=== PATIENT | male | born 1955 | race Hispanic/Latino ===

== ENCOUNTER 2017-09-22 12:46 | Emergency (ER) | payer OTHER ==
[~2017-09-22] VITALS: Ht 162.6 cm; Wt 66.0 kg
[2017-09-22] MEDS ORDERED: METOPROL TAR25 MG PO (12:57)
[2017-09-22] MEDS ORDERED: METFORMIN500 MG PO (12:57)
[2017-09-22] MEDS ORDERED: ASPIRIN81 MG PO (12:58)
[2017-09-22] MEDS ORDERED: SIMVASTATIN40 MG PO (12:58)
[2017-09-22] MEDS ORDERED: CEPHALEXIN500 MG PO (13:40)
[2017-09-22 14:20] VITALS: BP 145/77
== END 2017-09-22 14:37 | disposition home or self-care (01) | DRG 605 ==
LOC: ED 12:46
PROC: 0HQFXZZ Repair Right Hand Skin, External Approach (ICD-10-PCS; principal; 2017-09-22)
DX: S61.216A Laceration without foreign body of right little finger without damage to nail, initial encounter (principal); R11.0 Nausea; W24.0XXA Contact with lifting devices, not elsewhere classified, initial encounter; Y93.89 Activity, other specified; Y92.89 Other specified places as the place of occurrence of the external cause

== ENCOUNTER 2019-06-07 01:53 | Emergency (ER) | payer MEDICARE, BC ==
[~2019-06-07] VITALS: Ht 162.6 cm; Wt 65.9 kg
[~2019-06-07 01:53] MED LIST: ASPIRIN81 MG PO; CEPHALEXIN500 MG PO; METFORMIN500 MG PO; METOPROL TAR25 MG PO; SIMVASTATIN40 MG PO
[2019-06-07 02:59] LABS: HEMOGLOBIN 15.8 g/dl (14.0-18.0); IMMATURE GRANULOCYTES 0.3 % (0.0-5.0); MEAN CELL VOLUME 91.3 fL CALC (80.0-100.0); MEAN CORPUSCULAR HGB CONC 32.9 g/L CALC (32.0-36.0); NEUT# 10.03 thou/uL (1.82-7.42); RED BLOOD COUNT 5.26 mill/uL (4.70-6.10); RED CELL DISTRI WIDTH 14.6 % (11.5-15.5)
[2019-06-07 03:19] LABS: PROTHROMBIN TIME 10.6 SECONDS (9.0-12.5)
[2019-06-07 03:22] LABS: ALBUMIN 4.1 g/dL (3.2-5.0); ALKALINE PHOSPHATASE 82 u/l (38-126); ANION GAP 13 (6-22 (CALC)); BILIRUBIN, TOTAL 0.4 mg/dL (0.0-1.4); BUN 29 mg/dL (8-23); BUN/CREATININE RATIO 16 (12-20 (CALC)); CARBON DIOXIDE 24 mmol/l (22-30); CHLORIDE 107 mmol/l (95-108); CREATININE 1.8 mg/dL (0.7-1.3); GFR 38 ML/MIN (>=60 (CALC)); GFR FOR AFR.AMER. 46 ML/MIN (>=60 (CALC)); POTASSIUM 3.8 mmol/l (3.5-5.1); SGOT/AST 32 u/l (19-48); SODIUM 141 mmol/l (137-146); TOTAL PROTEIN 6.5 g/dL (6.3-8.2)
[2019-06-07 03:30] LABS: MYOGLOBIN 109 ng/mL (0 - 121)
[2019-06-07] MEDS ORDERED: CRESTOR40 MG PO (04:09)
[2019-06-07] MEDS ORDERED: PLAVIX75 MG PO (04:09)
[2019-06-07] MEDS ORDERED: LEVOTHYROXIN50 MCG PO (04:10)
[2019-06-07] MEDS ORDERED: LOSARTAN POTASS25 MG PO (04:10)
[2019-06-07] MEDS ORDERED: FISH OIL1000 MG PO (04:11)
[2019-06-07] MEDS ORDERED: ASPIRIN81 MG PO (04:11)
[2019-06-07 05:00] VITALS: BP 118/59
== END 2019-06-07 05:24 | disposition short-term general hospital (02) ==
LOC: ED 01:53
PROVIDERS: Emergency Medicine
DX: S06.6X9A Traumatic subarachnoid hemorrhage with loss of consciousness of unspecified duration, initial encounter (principal); S01.511A Laceration without foreign body of lip, initial encounter; S00.83XA Contusion of other part of head, initial encounter; E11.22 Type 2 diabetes mellitus with diabetic chronic kidney disease; I12.9 Hypertensive chronic kidney disease with stage 1 through stage 4 chronic kidney disease, or unspecified chronic kidney disease; N18.3 Chronic kidney disease, stage 3 (moderate); F17.200 Nicotine dependence, unspecified, uncomplicated; I25.2 Old myocardial infarction; W19.XXXA Unspecified fall, initial encounter; Y92.002 Bathroom of unspecified non-institutional (private) residence as the place of occurrence of the external cause; Z79.84 Long term (current) use of oral hypoglycemic drugs

== ENCOUNTER 2020-03-24 00:09 | Emergency (ER) | payer MEDICARE, BC ==
[~2020-03-24] VITALS: Ht 162.6 cm; Wt 65.9 kg
[~2020-03-24 00:09] MED LIST changes: +CRESTOR40 MG PO; +FISH OIL1000 MG PO; +LEVOTHYROXIN50 MCG PO; +LOSARTAN POTASS25 MG PO; +PLAVIX75 MG PO
[2020-03-24 00:50] LABS: HEMATOCRIT 45.5 % (39.0-50.0); HEMOGLOBIN 14.8 g/dl (14.0-18.0); IMMATURE GRANULOCYTES 0.4 % (0.0-5.0); MEAN CELL VOLUME 88.2 fL CALC (80.0-100.0); MEAN CORPUSCULAR HGB 28.7 pG CALC (26.0-32.0); MEAN CORPUSCULAR HGB CONC 32.5 g/dL CAL (32.0-36.0); NEUT# 6.18 thou/uL (1.82-7.42); RED BLOOD COUNT 5.16 mill/uL (4.70-6.10); RED CELL DISTRI WIDTH 14.4 % (11.5-15.5)
[2020-03-24 01:07] LABS: URINE BILIRUBIN - DIPSTICK NEGATIVE (NEGATIVE); URINE BLOOD DIPSTICK LARGE (NEGATIVE); URINE COLOR YELLOW; URINE GLUCOSE - DIPSTICK 500 mg/dL (NEGATIVE); URINE KETONE NEGATIVE (NEGATIVE); URINE LEUK ESTERASE NEGATIVE (NEGATIVE); URINE NITRITE - DIPSTICK NEGATIVE (Negative); URINE PROTEIN - DIPSTICK 100 mg/dL (NEG-TRACE); URINE SPECIFIC GRAVITY 1.025; URINE UROBILINOGEN - DIPSTICK 0.2 E.U./dL (0.2)
[2020-03-24 01:11] LABS: ALBUMIN 3.6 g/dL (3.2-5.0); BILIRUBIN, TOTAL 0.3 mg/dL (0.0-1.4); CREATININE 1.7 mg/dL (0.7-1.3); POTASSIUM 4.1 mmol/l (3.5-5.1); TOTAL PROTEIN 6.6 g/dL (6.3-8.2)
[2020-03-24 01:14] VITALS: BP 127/68
[2020-03-24 01:44] LABS: URINE MUCUS MANY hpf (NONE-FEW); URINE RBC 0-2 RBC/hpf (0-5); URINE SQUAMOUS EPITHELIAL CELL FEW EPI/hpf (0-FEW)
== END 2020-03-24 01:58 | disposition home or self-care (01) ==
LOC: ED 00:09
PROVIDERS: Family Medicine
DX: B34.9 Viral infection, unspecified (principal); E11.22 Type 2 diabetes mellitus with diabetic chronic kidney disease; I12.9 Hypertensive chronic kidney disease with stage 1 through stage 4 chronic kidney disease, or unspecified chronic kidney disease; N18.3 Chronic kidney disease, stage 3 (moderate); F17.210 Nicotine dependence, cigarettes, uncomplicated; I25.2 Old myocardial infarction; Z20.828 Contact with and (suspected) exposure to other viral communicable diseases

== ENCOUNTER 2022-05-24 10:22 | Observation (INO) | payer MEDICARE, BC ==
[~2022-05-24] VITALS: Ht 162.6 cm; Wt 68.0 kg
[~2022-05-24 10:22] MED LIST changes: -METOPROL TAR25 MG PO; +TOPROL XL25 M1 PO
--- NOTE | 2022-05-24 10:41 | NUR ---
PT ED RM 15, NO DISTRESS
[2022-05-24 11:09] LABS: ALBUMIN 4.5 g/dL (3.2-5.0); ALKALINE PHOSPHATASE 80 u/l (38-126); ANION GAP 15 (6-22 (CALC)); BILIRUBIN, TOTAL 0.3 mg/dL (0.0-1.4); BUN 27 mg/dL (8-23); BUN/CREATININE RATIO 15 (12-20 (CALC)); CARBON DIOXIDE 20 mmol/l (22-30); CHLORIDE 109 mmol/l (95-108); CREATININE 1.8 mg/dL (0.7-1.3); GFR FOR AFR.AMER. 45 ML/MIN (>=60 (CALC)); GFR OTHER RACES 38 ML/MIN (>=60 (CALC)); POTASSIUM 2.7 mmol/l (3.5-5.1); SGOT/AST 37 u/l (19-48); SODIUM 141 mmol/l (137-146); TOTAL PROTEIN 7.7 g/dL (6.3-8.2)
[2022-05-24 11:15] LABS: HEMATOCRIT 52.9 % (39.0-50.0); HEMOGLOBIN 17.7 g/dl (14.0-18.0); IMMATURE GRANULOCYTES 1.3 % (0.0-5.0); MEAN CELL VOLUME 94.8 fL CALC (80.0-100.0); MEAN CORPUSCULAR HGB 31.7 pG CALC (26.0-32.0); MEAN CORPUSCULAR HGB CONC 33.5 g/dL CAL (32.0-36.0); NEUT# 6.33 thou/uL (1.82-7.42); RED BLOOD COUNT 5.58 mill/uL (4.70-6.10); RED CELL DISTRI WIDTH 15.3 % (11.5-15.5)
[2022-05-24] MEDS ORDERED: TOUJEO MAX300 UNIT/M SC (14:03)
[2022-05-24] MEDS ORDERED: CLOPIDOGREL75 MG PO (14:06)
[2022-05-24] MEDS ORDERED: TRULICITY4.5 MG/0.5 SC (14:12)
[2022-05-24 14:54] VITALS: BP 132/66
[2022-05-24 19:16] VITALS: BP 134/64
--- NOTE | 2022-05-24 20:08 | NUR ---
BEDSIDE REPORT COMPLETED FOR THIS PT AND IN BED WITH EYES OPEN AND ABLE TO MAKE NEEDS KNOWN. RESPIRATION EVEN AND NON LABORED. CALL LIGHT IS WITHIN REACH AND BED IN LOW POSITION. WILL CONTINUE TO OBSERVE
[2022-05-25 00:39] VITALS: BP 128/66
[2022-05-25 04:02] VITALS: BP 111/59
[2022-05-25 04:54] LABS: HEMATOCRIT 48.8 % (39.0-50.0); HEMOGLOBIN 15.9 g/dl (14.0-18.0); MEAN CORPUSCULAR HGB 30.6 pG CALC (26.0-32.0); MEAN CORPUSCULAR HGB CONC 32.6 g/dL CAL (32.0-36.0); RED BLOOD COUNT 5.19 mill/uL (4.70-6.10); RED CELL DISTRI WIDTH 15.3 % (11.5-15.5)
[2022-05-25 05:32] LABS: CREATININE 1.5 mg/dL (0.7-1.3); MAGNESIUM 1.9 mg/dL (1.6-2.3)
[2022-05-25 05:42] LABS: POTASSIUM 4.2 mmol/l (3.5-5.1)
[2022-05-25 07:06] LABS: URINE BILIRUBIN - DIPSTICK NEGATIVE (NEGATIVE); URINE BLOOD DIPSTICK SMALL (NEGATIVE); URINE COLOR YELLOW; URINE GLUCOSE - DIPSTICK 100 mg/dL (NEGATIVE); URINE KETONE NEGATIVE (NEGATIVE); URINE NITRITE - DIPSTICK NEGATIVE (Negative); URINE PH 5.5 (4.5-8.0); URINE PROTEIN - DIPSTICK TRACE mg/dL (NEG-TRACE); URINE SPECIFIC GRAVITY 1.015; URINE UROBILINOGEN - DIPSTICK 0.2 E.U./dL (0.2)
[2022-05-25 07:09] LABS: URINE BACTERIA MODERATE hpf; URINE EPITHELIAL CELLS FEW EPI/hpf (0-FEW)
[2022-05-25 07:21] LABS: URINE LEUK ESTERASE NEGATIVE (NEGATIVE)
[2022-05-25 07:30] VITALS: BP 129/68
--- NOTE | 2022-05-25 10:35 | NUR ---
PT RESTING IN HIGH FOWLERS POSITION. A/OX3 ASSESSMENT AND VS COMPLETE. PT STATES WOULD LIKE TO LEAVE EDUCATED PT PROVIDER WILL SEE HIM SOON AND WILL GIVE DC ORDERS. PT STATES WILL LEAVE TODAY EITHER WAY IF NO DC. BUTT PRESSER NOTIFIED. ALL SAFETY PRECAUTIONS IN PLACE WITH CALL LIGHT IN REACH .
[2022-05-25 11:11] VITALS: BP 121/66
--- NOTE | 2022-05-25 13:14 | NUR ---
PT NO NEW ORDERS FOR PT DC.
--- NOTE | 2022-05-25 16:58 | NUR ---
Discharge instructions given. Patient verbalizes understanding of same. Discharged in stable condition via Wheelchair to Home with staff. All belongings sent with pt. IVS REMOVED TELE REMOVED .
== END 2022-05-25 16:57 | disposition home or self-care (01) ==
LOC: ED 10:22 → ED-I 11:40 → ED 11:53 → MS2 11:54
PROVIDERS: Family Medicine; ADMIT Internal Medicine; ATTEND Internal Medicine
DX: T38.3X1A Poisoning by insulin and oral hypoglycemic [antidiabetic] drugs, accidental (unintentional), initial encounter (principal); E11.649 Type 2 diabetes mellitus with hypoglycemia without coma; E87.6 Hypokalemia; I12.9 Hypertensive chronic kidney disease with stage 1 through stage 4 chronic kidney disease, or unspecified chronic kidney disease; E11.22 Type 2 diabetes mellitus with diabetic chronic kidney disease; N18.30 Chronic kidney disease, stage 3 unspecified; E03.9 Hypothyroidism, unspecified; I25.2 Old myocardial infarction; F17.200 Nicotine dependence, unspecified, uncomplicated; Z79.4 Long term (current) use of insulin; Z95.5 Presence of coronary angioplasty implant and graft
CPT/HCPCS: J1650; J3475